=== PATIENT | female | born 1975 | race Caucasian/White ===

== ENCOUNTER 2021-04-21 17:05 | Emergency (ER) | payer MEDICARE, MEDICAID ==
[~2021-04-21] VITALS: Ht 185.4 cm; Wt 107.3 kg
[2021-04-21 17:25] VITALS: TEMP 988
[2021-04-21 18:11] LABS: HEMOGLOBIN 12.9 g/dl (12.5-16.0); MEAN CELL VOLUME 83 fl (80.0-100.0); MEAN CORPUSCULAR HEMOGLOBIN 27 pg (27.0-31.0); MEAN CORPUSCULAR HGB CONC 32 g/dl (33.0-37.0); MEAN PLATELET VOLUME 9.3 fl (7.4-10.4); PLATELET COUNT 362 K/mm3 (130-400); REDCELL DISTRIBUTION WIDTH-CV 15.9 % (11.5-14.5)
[2021-04-21 18:44] LABS: ALANINE AMINOTRANSFERASE 19 U/L (0-55); ALBUMIN 3.1 gm/dL (3.5-5.0); ALKALINE PHOSPHATASE 275 U/L (40-150); ANION GAP 13 mmol/L (7-16); AST,SGOT 38 U/L (5-34); BILIRUBIN,TOTAL 0.3 mg/dL (0.2-1.2); BLOOD UREA NITROGEN 11 mg/dL (7-19); C-REACTIVE PROTEIN 2.53 mg/dL (0.00-0.50); CALCIUM 12.3 mg/dL (8.4-10.2); CARBON DIOXIDE 21 mmol/L (22-29); CHLORIDE 104 mmol/L (98-107); CREATININE, serum 0.76 mg/dL (0.57-1.11); GLUCOSE 183 mg/dL (70-99); POTASSIUM 4.4 mmol/L (3.5-4.5); SODIUM 138 mmol/L (136-145); TOTAL PROTEIN 7.3 gm/dL (6.2-8.1)
[2021-04-21 18:45] LABS: INR 1.3 (0.8-3.0); PROTHROMBIN TIME 14.5 SECONDS (9.7-12.8)
[2021-04-21 18:51] LABS: TROPONIN-I < 0.010 ng/mL (0.00-0.033)
[2021-04-21 19:12] LABS: BAND 3 % (0-10); LYMPHOCYTE 29 % (20.0-51.0); NEUTROPHILS 64 % (42.0-75.2)
[2021-04-21 19:13] LABS: PLATELET ESTIMATE NORMAL (NORMAL)
[2021-04-21 20:43] LABS: COLLECTION METHOD CLEAN CATCH
[2021-04-21 20:48] LABS: MUCOUS Present (NOT PRESENT); PH 7 (5-8); SQUAMOUS EPITHELIAL 0-2 /hpf (0-10); URINE APPEARANCE Clear (CLEAR/HAZY); URINE BACTERIA None Seen (NONE SEEN); URINE BILIRUBIN Negative (NEGATIVE); URINE BLOOD Negative (NEGATIVE); URINE COLOR Yellow (YELLOW); URINE GLUCOSE Negative (NEGATIVE); URINE KETONE Trace (NEGATIVE); URINE LEUKOCYTE ESTERASE Negative (NEGATIVE); URINE NITRATE Negative (NEGATIVE); URINE PROTEIN(semi-quant) Negative (NEGATIVE); URINE RBC 0-2 /hpf (0-2); URINE UROBILINOGEN Negative (NEGATIVE)
[2021-04-21] MEDS ORDERED: PERCOCET 325 MG1 TA2 PO (22:36)
[2021-04-21 23:07] VITALS: BP 141/97; PULSE 66
[2021-04-23] MEDS ORDERED: NORCO 325 MG-101 TAB PO (17:11)
[2021-04-23] MEDS ORDERED: VENTOLIN0.09 MG IH (17:11)
[2021-04-23] MEDS ORDERED: PRILOSEC 20MG20 MG PO (17:12)
[2021-04-23] MEDS ORDERED: ZANAFLEX CAPSULE4 MG PO (17:12)
[2021-04-23] MEDS ORDERED: GLUCOPHAGE500 MG/TAB PO (17:12)
[2021-04-23] MEDS ORDERED: ZYRTEC10MGSGL (17:13)
[2021-04-23] MEDS ORDERED: BENTYL 10MG10 MG/CAP PO (17:13)
[2021-04-23] MEDS ORDERED: TOPAMAX50 MG PO (17:13)
[2021-04-23] MEDS ORDERED: BRINTELLIX20 (17:14)
[2021-04-23] MEDS ORDERED: ABILIFY5 MG PO (17:14)
[2021-04-23] MEDS ORDERED: CRESTOR20 MG PO (17:14)
[2021-04-23] MEDS ORDERED: SINGULAIR 110 MG/TAB PO (17:14)
[2021-04-23] MEDS ORDERED: MIDAMOR 5MG TAB5 MG PO (17:15)
[2021-04-23] MEDS ORDERED: DESYREL DIVIDO150 M1 PO (17:15)
[2021-04-23] MEDS ORDERED: ELIQUIS 5MG PO (17:15)
[2021-04-23] MEDS ORDERED: EXCEDRIN1 TAB PO (17:16)
[2021-04-23] MEDS ORDERED: LASIX 40MG TABL40 MG PO (17:16)
[2021-04-23] MEDS ORDERED: DIFLUCAN150 MG PO (17:16)
[2021-04-23] MEDS ORDERED: TRELEGY ELLIPT1 EACH IH (17:16)
[2021-04-23] MEDS ORDERED: STOOL SOFTENER100 M2 PO (17:17)
[2021-04-23] MEDS ORDERED: VITAMIN D31000 I1 PO (17:17)
[2021-04-23] MEDS ORDERED: NATURE'S BLEND600 M2 PO (17:17)
[2021-04-23] MEDS ORDERED: PRENATAL TABLET PO (17:18)
[2021-04-23] MEDS ORDERED: GAS RELIEF125 MG PO (17:18)
[2021-04-27] MEDS ORDERED: TRANSDERM-0.5 MG/21 TD (08:27)
[2021-04-27] MEDS ORDERED: DULCOLAX S10 MG/SUPP RC (08:28)
[2021-04-27] MEDS ORDERED: SYSTANE 0.3-0.1 EACH OP (08:29)
[2021-04-27] MEDS ORDERED: FENTANYL 50MCG TD (08:38)
[2021-04-27] MEDS ORDERED: ATIVAN 0.50.5 MG/TAB PO (08:38)
[2021-04-27] MEDS ORDERED: ROXANOL 20MG20 MG/ML SL (08:38)
[2021-04-27] MEDS ORDERED: BENADRYL50 MG PO (11:13)
[2021-04-27] MEDS ORDERED: ZOFRAN ODT4 MG PO (11:18)
== END 2021-04-21 23:07 | disposition home or self-care (01) ==
LOC: COL.ER 17:05
PROVIDERS: Physician Assistant
DX: M84.48XA Pathological fracture, other site, initial encounter for fracture (principal); R91.8 Other nonspecific abnormal finding of lung field; J44.9 Chronic obstructive pulmonary disease, unspecified; E11.40 Type 2 diabetes mellitus with diabetic neuropathy, unspecified; Z20.822 Contact with and (suspected) exposure to COVID-19
CPT/HCPCS: J2270; J7030; Q9967